=== PATIENT | female | born 1965 | race Caucasian/White ===

== ENCOUNTER 2017-09-16 16:59 | Emergency (ER) | payer BC ==
[2017-09-16 17:06] VITALS: BMI 29.2
[2017-09-16 17:50] VITALS: TEMP 97.9; O2SAT 99
[2017-09-16 17:51] LABS: BASO # 0.02 K/mm3 (0.0-2.0); BASO % 0.3 % (0.0-3.0); EOS # 0.3 (0.0-0.7); EOS % 3.8 % (1.5-5.0); GRAN # 4.31 (1.4-6.5); GRAN % 54.2 % (50.0-68.0); HEMOGLOBIN 13.8 g/dL (12.0-16.0); LYMPH # 2.8 (1.2-3.4); LYMPH % 35.6 % (22.0-35.0); MEAN CELL VOLUME 91.4 fl (80.0-105.0); MEAN CORPUSCULAR HEMOGLOBIN 31.1 pg (25.0-35.0); MEAN PLATELET VOLUME 9.3 fl (7.0-11.0); MONO # 0.5 (0.1-0.6); MONO % 6.1 % (1.0-6.0); RBC 4.44 10^6/uL (3.5-6.1); RED CELL DISTRIBUTION WIDTH 12.2 % (11.5-14.5); WHITE BLOOD COUNT 7.9 10^3/ul (4.5-11.0)
--- NOTE | 2017-09-16 18:16 | ED PDOC ---
Arrival/HPI - General Historian: Patient <Mile Molina - Last Filed: 09/17/17 01:08> <OscarKofiJuarezeris - Last Filed: 09/17/17 16:05> - General Chief Complaint: Psychiatric Evaluation Time Seen by Provider: 09/16/17 17:08 - History of Present Illness Narrative History of Present Illness (Text): 09/16/17 18:12 51yr old female with hx of DM and depression/anxiety presents today after police showed up at patients door. pt states she got into an arguement with renal case manager about medial leave benefits and in anger told the lady that "this is why people kill themselves". pt states next thing she knew the police were at her door claiming that they received a call that she was going to kill herself. pt denies any complaints. denies SI. denies cp or sob. no vomiting or diarrhea. pt states she did not mean that she was going to hurt herself. pt states she said it out of anger/frustration. pt denies any SI or HI. pt states nor did she ever. (Mile Molina) Past Medical History - Provider Review Nursing Documentation Reviewed: Yes - Travel History Have you recently traveled outside [place] w/in the past 3 mons?: No - Infectious Disease Hx of Infectious Diseases: None - Tetanus Immunization Tetanus Immunization: Unknown - Cardiac Hx Cardiac Disorders: No - Pulmonary Hx Respiratory Disorders: No - Neurological Hx Neurological Disorder: No - HEENT Hx HEENT Disorder: No - Renal Hx Renal Disorder: No - Endocrine/Metabolic Hx Diabetes Mellitus Type 2: No - Hematological/Oncological Hx Blood Disorders: No - Integumentary Hx Dermatological Disorder: No - Musculoskeletal/Rheumatological Hx Musculoskeletal Disorders: No - Gastrointestinal Hx Gastrointestinal Disorders: No - Genitourinary/Gynecological Hx Genitourinary Disorders: No - Psychiatric Hx Anxiety: Yes Hx Depression: Yes Hx Emotional Abuse: No Hx Physical Abuse: No Hx Substance Use: No - Surgical History Hx Section: Yes - Anesthesia Hx Anesthesia: Yes - Suicidal Assessment Feels Threatened In Home Enviroment: No <Mile Molina - Last Filed: 09/17/17 01:08> Family/Social History - Physician Review Nursing Documentation Reviewed: Yes Family/Social History: Unknown Family HX Smoking Status: Never Smoked Hx Alcohol Use: Yes Hx Substance Use: No Hx Substance Use Treatment: No <Mile Molina - Last Filed: 09/17/17 01:08> Allergies/Home Meds <Mile Molina - Last Filed: 09/17/17 01:08> <OscarKofiLulAna - Last Filed: 09/17/17 16:05> Allergies/Adverse Reactions: Allergies aspirin Allergy (Verified 09/16/17 17:07) ANAPHYLAXIS cinnamon Allergy (Verified 09/16/17 17:07) ANAPHYLAXIS ibuprofen [From Motrin IB] Allergy (Verified 09/16/17 17:07) ANAPHYLAXIS morphine Allergy (Verified 09/16/17 17:07) ANAPHYLAXIS Penicillins Allergy (Verified 09/16/17 17:07) ANAPHYLAXIS Home Medications: Home Meds Medication Instructions Recorded Confirmed Metformin HCl [Glucophage] 0 mg PO BID 11/08/13 09/16/17 GlipiZIDE [Glucotrol] 0 mg PO DAILY 09/16/17 09/16/17 Risperidone [Risperidone Odt 0.25 mg PO DAILY 09/16/17 09/16/17 0.25MG] Review of Systems - Review of Systems Constitutional: absent: Fatigue, Fevers Respiratory: absent: SOB, Cough Cardiovascular: absent: Chest Pain, Palpitations Gastrointestinal: absent: Abdominal Pain, Nausea, Vomiting Genitourinary Female: absent: Dysuria, Frequency Musculoskeletal: absent: Arthralgias, Back Pain Psychiatric: Anxiety (hx of), Depression (hx of). absent: Suicidal Ideation <Mile Molina - Last Filed: 09/17/17 01:08> Physical Exam Vital Signs Reviewed: Yes Temperature: Afebrile Blood Pressure: Normal Pulse: Tachycardic Respiratory Rate: Normal Appearance: Positive for: Well-Appearing, Non-Toxic, Comfortable Pain Distress: None Mental Status: Positive for: Alert and Oriented X 3 - Systems Exam Head: Present: Atraumatic Mouth: Present: Moist Mucous Membranes Neck: Present: Normal Range of Motion Respiratory/Chest: Present: Clear to Auscultation Cardiovascular: Present: Regular Rate and Rhythm Abdomen: No: Tenderness Neurological: Present: GCS=15 Skin: Present: Warm, Dry, Normal Color. No: Rashes Psychiatric: Present: Alert, Oriented x 3 <Mile Molina - Last Filed: 09/17/17 01:08> Vital Signs Temp Pulse Resp BP Pulse Ox 09/16/17 22:35 84 18 131/86 99 09/16/17 17:48 97.9 F 100 H 20 140/83 99 Medical Decision Making <Mile Molina - Last Filed: 09/17/17 01:08> <Kasia Moore - Last Filed: 09/17/17 16:05> ED Course and Treatment: 09/16/17 18:16 Patient is nontoxic well-appearing in no distress vital signs are stable. CBC WNL CMP glucose; 468 Tylenol WNL Salicylate WNL Alcohol level WNL Urine drug screen wnl UA; wnl \\pt given 1L NS fs; 275 pt given 2nd liter NS; fs; 264 ekg normal sinus rhythm at 96 bpm normal axis and no ST elevations normal intervals pt is medically cleared for PES evaluation Patient was seen and evaluated by PES screener: Devonte Patient was psychiatrically cleared for discharge pt was advised to f/u with PMd regarding elevated glucose; advised patient of elevated bp and need for f/u with pmd; advised immediate return if symptoms worsen,persist or if new symptoms develop family at bedside Patient verbalizes understanding of discharge instructions and need for immediate followup. all aspects of this case were discussed the attending of record. Impression; anxiety, hyperglycemia increase fluids follow up with the primary care physician within the next 2 days regarding your elevated blood sugars follow up with your psychiatrist within the next 2 days Return immediately if symptoms worsen persist or if new concerning symptoms develop (Mile Molina) - Lab Interpretations Lab Results: 09/16/17 17:25 09/16/17 17:25 Lab Results 09/16/17 21:25: POC Glucose (mg/dL) 264 H 09/16/17 19:56: POC Glucose (mg/dL) 275 H 09/16/17 18:00: Urine Opiates Screen Negative, Urine Methadone Screen Negative, Ur Barbiturates Screen Negative, Ur Phencyclidine Scrn Negative, Ur Amphetamines Screen Negative, U Benzodiazepines Scrn Negative, U Oth Cocaine Metabols Negative, U Cannabinoids Screen Negative 09/16/17 18:00: Urine Color Yellow, Urine Appearance Sl cloudy, Urine pH 6.0, Ur Specific [place] 1.020, Urine Protein 100 H, Urine Glucose (UA) >=1000, Urine Ketones Negative, Urine Blood Trace-intact H, Urine Nitrate Negative, Urine Bilirubin Negative, Urine Urobilinogen 0.2, Ur Leukocyte Esterase Negative , Urine RBC 0 - 2, Urine WBC 0 - 2 09/16/17 17:25: Alcohol, Quantitative < 10 09/16/17 17:25: Salicylates < 1 L, Acetaminophen < 10.0 L 09/16/17 17:25: Sodium 138, Potassium 4.2, Chloride 100, Carbon Dioxide 25, Anion Gap 17, BUN 14, Creatinine 0.5 L, Est GFR ( Amer) > 60, Est GFR ( Non-Af Amer) > 60, Random Glucose 468 H*, Calcium 10.1, Total Bilirubin 0.3, AST 23, ALT 27, Alkaline Phosphatase 61, Total Protein 7.7, Albumin 4.1, Globulin 3.6, Albumin/Globulin Ratio 1.1 09/16/17 17:25: WBC 7.9, RBC 4.44, Hgb 13.8, Hct 40.6, MCV 91.4, MCH 31.1, MCHC 34.0, RDW 12.2, Plt Count 295, MPV 9.3, Gran % 54.2, Lymph % (Auto) 35.6 H, [place] % (Auto) 6.1 H, Eos % (Auto) 3.8, Baso % (Auto) 0.3, Gran # 4.31, Lymph # ( Auto) 2.8, [place] # (Auto) 0.5, Eos # (Auto) 0.3, Baso # (Auto) 0.02 - Medication Orders Current Medication Orders: Discontinued Medications Sodium Chloride (Sodium Chloride 0.9%) 1,000 mls @ 999 mls/hr IV .Q1H1M STA Stop: 09/16/17 19:31 Last Admin: 09/16/17 18:37 Dose: 999 mls/hr eMAR Start Stop Document 09/16/17 18:37 HP (Rec: 09/16/17 18:37 HP [id number]) Intravenous Solution Start Date 09/16/17 Start Time 18:37 End Date 09/16/17 End time 19:37 Total Infusion Time 60 Sodium Chloride (Sodium Chloride 0.9%) 1,000 mls @ 999 mls/hr IV .Q1H1M STA Stop: 09/16/17 21:15 Last Admin: 09/16/17 20:38 Dose: 999 mls/hr eMAR Start Stop Document 09/16/17 20:38 AD (Rec: 09/16/17 20:38 AD [id number]) Intravenous Solution Start Date 09/16/17 Start Time 20:38 - PA / ROAD PATCHER / Resident Statement / has reviewed & agrees with the documentation as recorded. <Kasia Moore - Last Filed: 09/17/17 16:05> Disposition/Present on Arrival - Present on Arrival Any Indicators Present on Arrival: No History of DVT/PE: No History of Uncontrolled Diabetes: No Urinary Catheter: No History of Decub. Ulcer: No History Surgical Site Infection Following: None - Disposition Have Diagnosis and Disposition been Completed?: Yes Disposition Time: 22:30 Patient Plan: Discharge <Mile Molina - Last Filed: 09/17/17 01:08> <Kasia Moore - Last Filed: 09/17/17 16:05> - Disposition Diagnosis: Anxiety, Hyperglycemia Disposition: HOME/ ROUTINE Condition: GOOD Discharge Instructions (ExitCare): Hyperglycemia, Adult, Anxiety, Adult (DC) Additional Instructions: increase fluids follow up with the primary care physician within the next 2 days regarding your elevated blood sugars follow up with your psychiatrist within the next 2 days Return immediately if symptoms worsen persist or if new concerning symptoms develop Referrals: Olayinka Colunga MD [Primary Care Provider] - Follow up with primary Forms: [employer] (Slovak)
[2017-09-16 18:19] LABS: URINE BILIRUBIN NEGATIVE (NEGATIVE); URINE BLOOD TRACE-INTACT (NEGATIVE); URINE GLUCOSE (UA) >=1000 mg/dL (NEGATIVE); URINE LEUKOCYTE ESTERASE NEGATIVE Leu/uL (NEGATIVE); URINE PROTEIN 100 mg/dL (<30 mg/dL); URINE UROBILINOGEN 0.2 E.U./dL (<1 E.U./dL)
[2017-09-16 18:21] LABS: ACETAMINOPHEN < 10.0 ug/ml (10.0-20.0); SALICYLATE < 1 mg/dL (2.0-20.0)
[2017-09-16 18:21] LABS: URINE APPEARANCE SL CLOUDY (CLEAR); URINE COLOR YELLOW (YELLOW)
[2017-09-16 18:23] LABS: URINE RBC 0 - 2 /hpf (0-2); URINE WBC 0 - 2 /hpf (0-6)
[2017-09-16 18:27] LABS: ALB/GLOB RATIO 1.1 (1.1-1.8); ALBUMIN 4.1 g/dL (3.0-4.8); ALT/SGPT 27 U/L (7-56); AST/SGOT 23 U/L (14-36); BLOOD UREA NITROGEN 14 mg/dL (7-21); CALCIUM 10.1 mg/dL (8.4-10.5); GFR AFRICAN-AMERICAN > 60; GFR NON-AFRICAN AMERICAN > 60
[2017-09-16] MEDS ORDERED: Sodium Chloride 0.9% 1,000 ML IV STA ×2 (18:31→20:15)
[2017-09-16 18:43] LABS: BARBITURATES, UR NEGATIVE (NEGATIVE); BENZODIAZEPINES, UR NEGATIVE (NEGATIVE); OPIATES, UR NEGATIVE (NEGATIVE); PHENCYCLIDINE, UR NEGATIVE (NEGATIVE)
[2017-09-16 22:36] VITALS: BP 131/86; PULSE 84; RESP 18
--- NOTE | 2017-09-17 10:47 | CARD ---
APPROVED REPORT EKG Measurement Heart [id number] <Conclusion> Normal sinus rhythm Possible Inferior infarct, age undetermined Possible Anterior infarct, age undetermined Abnormal ECG
== END 2017-09-16 22:41 | disposition home or self-care (01) ==
LOC: ED 16:59
DX: F41.9 Anxiety disorder, unspecified (principal); E11.65 Type 2 diabetes mellitus with hyperglycemia
CPT/HCPCS: 80053; 81001; 82948; 85025; 90791; 93005; 96360; 99284; G0480; J7040